=== PATIENT | female | born 1985 | race Caucasian/White ===

== ENCOUNTER 2016-11-03 00:02 | Emergency (ER) | payer OTHER ==
[~2016-11-03] VITALS: Ht 152.4 cm; Wt 68.0 kg
[2016-11-03] MEDS ORDERED: ALBUTEROL FS 2.5 MG/0.5 ML VIAL.NEB ONE (00:25)
[2016-11-03] MEDS ORDERED: ALBUTEROL FS 2.5 MG/0.5 ML VIAL.NEB NEB ONE (00:30)
[2016-11-03 01:08] VITALS: BP 104/81
== END 2016-11-03 01:09 | disposition home or self-care (01) ==
LOC: ER 00:04
DX: H66.92 Otitis media, unspecified, left ear (principal); J02.9 Acute pharyngitis, unspecified; J04.0 Acute laryngitis; Z88.8 Allergy status to other drugs, medicaments and biological substances
CPT/HCPCS: 71010; 94640; 99283; A4606; Z7610

== ENCOUNTER 2017-03-06 09:08 | Emergency (ER) | payer OTHER ==
[~2017-03-06] VITALS: Ht 152.4 cm; Wt 63.5 kg
[2017-03-06 09:08] VITALS: BP 142/90
== END 2017-03-06 09:52 | disposition home or self-care (01) ==
LOC: ER 09:10
DX: J20.9 Acute bronchitis, unspecified (principal); Z98.890 Other specified postprocedural states; Z88.1 Allergy status to other antibiotic agents
CPT/HCPCS: 99283; A4606; Z7610